=== PATIENT | male | born 1940 | race Caucasian/White ===

== ENCOUNTER 2017-08-25 07:01 | Inpatient (IN) ==
--- NOTE | 2017-08-24 22:06 | Discharge Summary ---
<Lia Maharaj E - Last Filed: 08/24/17 22:03> Date of Encounter: 08/24/17 - Discharge Diagnosis (1) Status post total hip replacement, right Priority: Primary Status: Acute (2) Osteoarthritis of right hip Priority: Primary Status: Chronic Qualifiers: Osteoarthritis type: unspecified Qualified Code(s): M16.11 - Unilateral primary osteoarthritis, right hip (3) HTN (hypertension) Priority: Secondary Status: Acute Qualifiers: Hypertension type: unspecified Qualified Code(s): I10 - Essential (primary ) hypertension (4) CAD (coronary artery disease) Priority: Secondary Status: Chronic Qualifiers: Coronary Disease-Associated Artery/Lesion type: unspecified vessel or lesion type [place] vs. 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 Wu is a 76 year old male - Time Spent with Patient Total time spent providing and/or coordinating discharge services: - Discharge Medications Home Medications: Oxycodone HCl 5 mg PO Q6H PRN 7 Days #28 tablet 08/24/17 [Rx] Acetaminophen [Tylenol Arthritis] 1,300 mg PO BID PRN 08/25/17 [History] Aspirin [Lo-Dose Aspirin EC] 81 mg PO DAILY 08/25/17 [History] Atorvastatin Calcium 80 mg PO HS 08/25/17 [History] Bisoprolol/HCTZ 2.5/6.25 [Ziac 2.5/6.25] 1 each PO DAILY 08/25/17 [History] Clopidogrel [Plavix] 75 mg PO DAILY 08/25/17 [History] Doxazosin [Cardura] 2 mg PO HS 08/25/17 [History] Allergies/Adverse Reactions: 3 Allergy/AdvReac Type Severity Reaction Status Date / Time No Known Allergies Allergy Verified 08/25/17 07:49 Primary care physician: Jean Paul Alfredo MD - Patient Status Disposition: Home Health Service Condition: Good - Discharge Instructions Follow Up With: Jean Paul Alfredo MD [Primary Care Provider] - <Damien Mendoza - Last Filed: 08/28/17 08:55> Date of Encounter: 08/28/17 Time of Encounter: 08:54 - Discharge Diagnosis (1) Obesity (BMI 35.0-39.9 without comorbidity) Priority: Secondary Status: Chronic (2) Status post total hip replacement, right Priority: Primary Status: Acute (3) Osteoarthritis of right hip Priority: Primary Status: Chronic Qualifiers: Osteoarthritis type: unspecified Qualified Code(s): M16.11 - Unilateral primary osteoarthritis, right hip (4) HTN (hypertension) Priority: Secondary Status: Acute Qualifiers: Hypertension type: unspecified Qualified Code(s): I10 - Essential (primary ) hypertension (5) CAD (coronary artery disease) Priority: Secondary Status: Chronic Qualifiers: Coronary Disease-Associated Artery/Lesion type: unspecified vessel or lesion type [place] vs. 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 Wu is a 76 year old male Status post right total hip replacement The patient had an uneventful postoperative course. They received antibiotics and physical therapy and were discharged in stable condition. There will follow -up in the office in 2 weeks. - Time Spent with Patient Total time spent providing and/or coordinating discharge services: Primary care physician: Jean Paul Alfredo MD - Patient Status Functional capacity at discharge: uses cane/walker Overall status at discharge: patient is progressing back to baseline
[2017-08-25] MEDS ORDERED: Famotidine 20 MG/2 ML VIAL IVP ONE (07:26)
[2017-08-25] MEDS ORDERED: Pregabalin 75 MG CAPSULE PO ONE (07:27)
[2017-08-25] MEDS ORDERED: Acetaminophen IV 1,000 MG/100 ML INFUS..BTL IVPB ONE (07:27)
[2017-08-25] MEDS ORDERED: Plasma-Lyte A (PH 7.4) 1,000 ML IVC SCH (07:30)
[2017-08-25] MEDS ORDERED: CeFAZolin Syr 2,000MG/20 ML 2,000 MG/20 ML SYRINGE IVPB ONE ×2 (07:34→12:26)
--- NOTE | 2017-08-25 07:43 | History & Physical Report ---
Date of Encounter: 08/25/17 Time of Encounter: 07:43 24 Hour HP Update - Instructions Instructions: If the History and Physical is less than 30 days old and was completed prior to A.M. admission and or procedure and has NOT been updated on calendar day of procedure please complete this update prior to performing procedure. - Update Patient reports changes in Medical Condition: No Changes in examination, assessment, or condition: No Changes in Medication: No Preop tests/diagnostics Reviewed: Yes Surgery Remains Indicated: Yes Consent for Planned Operative Procedure(s) Verified: Yes - Pre-Operative Checklist Preoperative Checklist Indicated: No Prophylactic Antibiotic Ordered: Yes Is VTE Prophylaxis Indicated?: Yes
[2017-08-25] MEDS ORDERED: Ringers Solution, Lactated 1,000 ML IVC SCH (07:45)
[2017-08-25] MEDS ORDERED: Ethanol\\Acetic Acid\\Na Ace\\Ben 1,000 ML IRRIG.SOLN IR ONE (08:17)
--- NOTE | 2017-08-25 08:24 | Anesthesia Evaluation PreOp ---
Date of Encounter: 08/25/17 Time of Encounter: 08:15 - Past History Planned Operation: Rt THR Cardiac History: HTN, Hyperlipidemia, Cardiac Stent (Stent X1 2003, off Plavix 3 days), Other (CAD) Pulmonary History: Denies Any Significant HX ENGRAVER MACHINE History: Denies Any Significant HX Other Medical History: Other (OA) Anesthesia History: No Prior Anesthetic Complications Alcohol Use: none Drug use: none Medications and Allergies Oxycodone HCl 5 mg PO Q6H PRN 7 Days #28 tablet 08/24/17 [Rx] Acetaminophen [Tylenol Arthritis] 1,300 mg PO BID PRN 08/25/17 [History] Aspirin [Lo-Dose Aspirin EC] 81 mg PO DAILY 08/25/17 [History] Atorvastatin Calcium 80 mg PO HS 08/25/17 [History] Bisoprolol/HCTZ 2.5/6.25 [Ziac 2.5/6.25] 1 each PO DAILY 08/25/17 [History] Clopidogrel [Plavix] 75 mg PO DAILY 08/25/17 [History] Doxazosin [Cardura] 2 mg PO HS 08/25/17 [History] 3 Allergy/AdvReac Type Severity Reaction Status Date / Time No Known Allergies Allergy Verified 08/25/17 07:49 - Meds/Allergy Pre-op Review Medications Reviewed: Yes Allergies Reviewed: Yes Beta Blockers on Current Med List: Yes (Bisoprolol today 0530) Anesthesia Results - Labs Laboratory Tests 08/19/17 08/19/17 08/19/17 16:16 16:16 16:16 Hgb 13.2 Hct 40.2 Plt Count 194 PT 11.4 INR 1.1 APTT 28.5 Sodium 141 Potassium 4.2 BUN 16 Creatinine 1.15 - Imaging EKG: report reviewed (SR) Anesthesia Exam O2 Sat Height 1.83 m Height 1.83 m Weight 119.748 kg Weight 119.748 kg O2 Sat by Pulse Oximetry 95 Vital Signs Temp Pulse Resp BP Pulse Ox 97.8 F 58 18 126/77 95 08/25/17 07:19 08/25/17 07:19 08/25/17 07:19 08/25/17 07:19 08/25/17 07:19 Height: 6'0 Weight: 264 lbs NPO (# of Hours): MN Pain Scale: 0 - HEENT Pupil (Motor): Pupils equal, EOMI Mallampati: II Denture Type: Upper: Complete Oral Opening: Greater than 3 - ENGRAVER MACHINE LOC: Oriented ENGRAVER MACHINE Motor: Normal RUE, Normal LUE, Normal RLE, Normal LLE, Normal Face ENGRAVER MACHINE Sensory: Normal: RUE, LUE, RLE, LLE, Face - Cardiac Rhythm: Regular Murmur: None JVD: No Carotid Bruit: No - Pulmonary Breath Sounds: bilateral Clear Respiratory Effort: Symmetrical Anesthesia Assess/Plan ASA Score: 3 (CAD HTN) Modified [place] Scale for Level of Consciousness: Cooperative, oriented, and tranquil Anesthetic Plan: General, Regional Monitoring Plan: Standard Monitors Recovery Plan: PACU (Discussed GA and Fascia Iliaca Block agrees to proceed)
[2017-08-25] MEDS ORDERED: Tetracaine/PF 20 MG/2 ML AMPUL ONE (08:26)
[2017-08-25] MEDS ORDERED: ROPIVACAINE HCL/PF 0.5% 30 ML VIAL ONE (08:26)
[2017-08-25] MEDS ORDERED: Lidocaine -MPF 2% 5 ML VIAL ONE (08:59)
[2017-08-25] MEDS ORDERED: *HR* OxyCODONE Immed Rel 5 MG TABLET PO PRN (09:05)
[2017-08-25] MEDS ORDERED: *HR* Labetalol 20 MG/4 ML SYRINGE IVP PRN (09:05)
[2017-08-25] MEDS ORDERED: *HR* FentaNYL (PF) 100 MCG/2 ML VIAL ONE ×2 (09:09→10:39)
[2017-08-25] MEDS ORDERED: *HR* Propofol 200 MG/20 ML VIAL IVP ONE (09:09)
[2017-08-25] MEDS ORDERED: Ondansetron 4 MG/2 ML VIAL ONE (09:09)
[2017-08-25] MEDS ORDERED: *HR* Succinylcholine 200 MG/10 ML VIAL IVP ONE (09:09)
[2017-08-25] MEDS ORDERED: Dexamethasone 4 MG/ML VIAL ONE (09:09)
[2017-08-25] MEDS ORDERED: Lidocaine -MPF 2% 2 ML VIAL ONE (09:11)
[2017-08-25] MEDS ORDERED: *HR* Midazolam HCl 2 MG/2 ML VIAL ONE (09:23)
[2017-08-25] MEDS ORDERED: Bupivacaine-MPF 0.25% 10 ML VIAL ONE (09:24)
[2017-08-25] MEDS ORDERED: EPHEDrine 50 MG/ML VIAL ONE (10:11)
--- NOTE | 2017-08-25 10:20 | Anesthesia Procedures ---
Date of Encounter: 08/25/17 Time of Encounter: 09:39 Procedures: Anesthesia - Nerve Block Procedure Date: 08/25/17 Time: 09:39 Surgical Procedure: right total hip replacment Checklist: Correct Patient Identifier, Correct procedure, History checked Correct side: Right Monitor Applied: BP, Pulse Oximetry Supplemental Oxygen via Nasal Cannula (L/min): 2 Sedation: Versed (mg): 1 Sedation: Fentanyl (mcg): 50 Indication: Post Op Analgesia Block Type: Other (fascia iliac ) Catheter placed: No Sterile Technique: Yes Ultrasound used: Yes Anatomy identified: Yes Visual spread of Local: Yes Neuro Stimulation: No Blood on Needle Aspiration: No Smooth Injection of Local: Yes Pain with Injection of Local: No Prep: Chlorhexadine Needle: 22 x 50 mm Stimuplex Local: 0.25% Bupivicaine w/Clonidine 20 mcg/cc (10ml of 0.125%), Ropivacaine ( 30ml 0.5% rop with 8mg decadron, 2ml tetracaine, with 26ml 0.9% NS dilute) Volume (cc): 70 Number of Attempts: 1 Complications: None/effective block Vitals: vss though out, block per request of surgeon
--- NOTE | 2017-08-25 10:54 | Orthopedic Operative Note ---
Date of procedure: 08/25/17 Pre-op diagnosis: Right hip arthritis Post-op diagnosis: same Procedure: Procedure: Right Total Hip Replacment robotic-assisted Estimated blood loss: 200 cc Hardware: Metal and polyethylene replacement. Conchis DM Cup: 60 cup Femoral size 10 stem Head: 0 head with Shanelle Procedural Notes: Grade 4 arthritic changes femoral head acetabular socket, procedure performed with robotic assistance. one millimeters short operative versus nonoperative side Operative procedure: The patient was brought to the operating room and placed on the operating room table. After general anesthesia was administered the patient was placed in the lateral decubitus position with the operative leg up. All pressure points were padded appropriately and the head was stabilized in the neutral position. The operative extremity was prepped and draped in the sterile surgical fashion patient received IV antibiotic prior to skin incision. 3 Steinmann pins were placed in the iliac crest 3 cm proximal to the anterior superior iliac spine this was for the robotic-assisted sensor. This was done through a small 2 cm incision. A standard posterior approach is made to the operative hip, the incision was made through the skin and subcutaneous tissue hemostasis was obtained with Bovie cautery. Using careful sharp dissection the fascia was identified and incised exposing the external rotators. The femoral checkpoint was placed leg length was measured at this time utilizing robotic assistance. The external rotators were released off the greater trochanter and tagged with # 2 FiberWire suture. The capsule was T'd open and the hip was brought into internal rotation. Patient noted to have grade 4 arthritic changes femoral head. The femoral neck cut was made at the appropriate level roughly 15 mm proximal to the lesser trochanter aced on preoperative templating. An anterior capsulotomy was performed for the anterior retractor. Soft tissues removed from the acetabulum. Patient noted to have grade 4 arthritic changes acetabulum. The acetabulum checkpoint was placed confirmed. The acetabulum was then mapped with robotic assistance. Based on the preoperative plan the acetabulum was reamed in one step with a 59 reamer. The 60 acetabulum was impacted with robotic assistance and 40 degrees of abduction and 20 degrees of anteversion. The hip was brought back in to internal rotation and prepared with the box finisher followed by the canal finder followed by the reaming process to a size 9/ 10 broaching process in 20 degrees anteversion. It was broached up to the appropriate size 10. Trial reduction revealed leg lengths close to normal. The femoral implant was impacted in place in 20 degrees of anteversion. Trial reduction found the hip to be stable with 0 head and Shanelle. The trials were removed and the real implants were impacted in place. The hip was reduced, patient had robotic confirmed leg length of 8 mm longer than the contralateral side. The hip had excellent stability with forward flexion to 90 degrees adduction of 30 degrees and internal rotation of 60 degrees. The hip had no shuck. The hips after 2 minutes with a antibacterial solution. It was irrigated out with 2 L of pulse irrigation. The checkpoints were removed, Steinmann pins were removed. The hip was closed by the PA. The deep tissue was irrigated and closed deep with #1 PDS suture superficially with 0 PDS suture and skin was closed with Dermabond and zip tie. The patient was placed in a sterile dressing and abduction pillow. The patient was extubated and transferred to the recovery room in stable condition. Anesthesia: GET[facility] Surgeon: Damien Mendoza Was there an certified medical technician assistant present: Yes Substation Operator Conversion: Opal Krishnan Estimated blood loss (cc): 200 Condition: stable Disposition: PACU
[2017-08-25] MEDS: MORPHINE SUL Oral CONC 10 MG/0.5 ML ORAL.SYG SL PRN ×2 (11:32→11:39)
[2017-08-25 12:12] LABS: Hematocrit 36.8 % (37.5-50.1); Hemoglobin 12.6 g/dL (12.9-16.9)
[2017-08-25] MEDS: Bisoprolol/HCTZ 2.5/6.25 TABLET PO SCH (14:53)
[2017-08-25] MEDS: Aspirin Enteric Coated 81 MG Tablet PO SCH (14:53)
[2017-08-25] MEDS ORDERED: traMADol 50 MG TABLET PO PRN (17:26)
[2017-08-25] MEDS ORDERED: Ondansetron 4 MG/2 ML VIAL IVP PRN (17:26)
[2017-08-25] MEDS ORDERED: MOM Conc 10 ML UD.LIQ PO PRN (17:26)
[2017-08-25] MEDS ORDERED: Temazepam 15 MG CAPSULE PO PRN (17:26)
[2017-08-25] MEDS ORDERED: Naloxone 0.4 MG/ML INJ IVP PRN (17:26)
[2017-08-25] MEDS ORDERED: Sennosides 8.6 MG TABLET PO PRN (17:26)
[2017-08-25] MEDS ORDERED: *HR* Enoxaparin 30 MG/0.3 ML SYRINGE SQ SCH (18:00)
[2017-08-25] MEDS: Ringers Solution, Lactated 1,000 ML IVC SCH (18:09)
[2017-08-26] MEDS: CeFAZolin Pre 2,000 MG/100 ML 2,000 MG/100 ML BAG IVPB SCH ×2 (00:08→08:44)
[2017-08-26 02:18] LABS: Hematocrit 33.9 % (37.5-50.1); Hemoglobin 11.8 g/dL (12.9-16.9)
[2017-08-26 02:42] LABS: BUN/Creatinine Ratio 21 (6-26); Blood Urea Nitrogen 20 mg/dL (8-23); Calcium 8.9 mg/dL (8.6-10.3); Carbon Dioxide 20 mEq/L (23-29); Chloride 107 mEq/L (98-107); Glucose 142 mg/dL (70-105); Osmolality,Calculated 289 (280-300); Potassium 3.9 mEq/L (3.5-5.1); Sodium 137 mEq/L (136-145); eGFR For African Americans > 60 (> 60); eGFR For Non-African Americans > 60 (> 60)
[2017-08-26] MEDS: *HR* OxyCODONE/APAP 5/325 TABLET PO PRN ×4 (05:10→19:43)
--- NOTE | 2017-08-26 06:53 | Orthopedics Progress Note ---
Date of Encounter: 08/26/17 Time of Encounter: 06:53 - Assessment and Plan (1) Obesity (BMI 35.0-39.9 without comorbidity) Current Visit: Yes Status: Chronic (2) Status post total hip replacement, right Current Visit: No Status: Acute (3) Osteoarthritis of right hip Current Visit: No Status: Chronic Qualifiers: Osteoarthritis type: unspecified Qualified Code(s): M16.11 - Unilateral primary osteoarthritis, right hip (4) HTN (hypertension) Current Visit: No Status: Acute Qualifiers: Hypertension type: unspecified Qualified Code(s): I10 - Essential (primary ) hypertension (5) CAD (coronary artery disease) Current Visit: No Status: Chronic Qualifiers: Coronary Disease-Associated Artery/Lesion type: unspecified vessel or lesion type [place] vs. 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 Afebrile vital signs stable. Operative extremity: Neurovascularly intact Dressing clean dry and intact Calves nontender Assessment and plan: Continue with postoperative care Hematocrit 33 Objective Vital signs: Vital Signs Temp Pulse Resp BP Pulse Ox 08/26/17 02:47 98.2 F 62 18 106/64 94 08/25/17 22:53 98.6 F 74 14 95/60 97 08/25/17 18:38 97.9 F 69 16 106/67 97 08/25/17 12:30 98.1 F 16 16 129/83 99 08/25/17 12:00 97.6 F 63 14 129/78 98 08/25/17 11:50 97.6 F 68 16 125/86 97 08/25/17 11:40 75 16 135/79 98 08/25/17 11:30 72 16 123/84 98 08/25/17 11:20 97.0 F L 72 16 138/95 100 08/25/17 09:40 52 16 118/75 98 08/25/17 09:30 58 16 129/90 96 08/25/17 07:19 97.8 F 58 18 126/77 95 Intake and Output 08/25/17 08/25/17 08/26/17 15:59 23:59 07:59 Intake Total 600 / 600 500 / 500 Output Total 200 / 200 700 / 700 0 / 0 Balance -200 / -200 -100 / -100 500 / 500 Intake: Oral 600 / 600 500 / 500 Output: Urine 700 / 700 0 / 0 Estimated Blood Loss 200 / 200 Other: Meal Dinner Percent of Meal Consumed 50% - Labs CBC & BMP: 08/26/17 01:52 08/26/17 01:52 Labs: Abnormal lab results Hgb 11.8 g/dL (12.9-16.9) L 08/26/17 01:52 Hct 33.9 % (37.5-50.1) L 08/26/17 01:52 Carbon Dioxide 20 mEq/L (23-29) L 08/26/17 01:52 Glucose 142 mg/dL (70-105) H 08/26/17 01:52 - VTE Documentation of Mechanical Device: Venous foot pump, device Consult Discharge Plan - Plan Referrals: Jean Paul Alfredo MD [Primary Care Provider] -
--- NOTE | 2017-08-26 08:39 | Event Note ---
Date of Encounter: 08/26/17 Time of Encounter: 09:00 PCR- POD#1 right total hip robotic 08/25/17 Dr. Mendoza PCR - Patient seen at bedside. Labwork and medications reviewed. Pain control: Adequate Participating in PT. All questions and concerns addressed. Educated on use of incentive spirometer, ambulation, and hydration. Patient educated on post-operative restrictions and care. Addressed: The patient complains of weakness of the right leg with ambulation. He states that he has not been able to participate much with therapy she states this is much more intense than he anticipated. D/C plan: Home with outpatient therapy pending therapy evaluation
[2017-08-26] MEDS: Ascorbic Acid 500 MG TABLET PO SCH ×2 (08:43→15:46)
[2017-08-26] MEDS: Multivit/Ca/Min/Fe/FA 1 TAB TABLET PO SCH (08:43)
[2017-08-26] MEDS: Bisoprolol/HCTZ 2.5/6.25 TABLET PO SCH (08:43)
[2017-08-26] MEDS: Aspirin Enteric Coated 81 MG Tablet PO SCH (08:43)
--- NOTE | 2017-08-26 17:20 | Physician Discharge Referral ---
ExtendedCare Referral Info Transfer To: [facility] Provider in Charge: Dr. 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 Priority: Secondary Status: Chronic (6) Obesity Priority: Secondary Status: Chronic Expected Duration of Placement: less than 30 days Prognosis: Good Aware of Diagnosis: Patient Aware of Prognosis: Patient - Transfer Medications Home Medications: Oxycodone HCl 5 mg PO Q6H PRN 7 Days #28 tablet 08/24/17 [Rx] Acetaminophen [Tylenol Arthritis] 1,300 mg PO BID PRN 08/25/17 [History] Aspirin [Lo-Dose Aspirin EC] 81 mg PO DAILY 08/25/17 [History] Atorvastatin Calcium 80 mg PO HS 08/25/17 [History] Bisoprolol/HCTZ 2.5/6.25 [Ziac 2.5/6.25] 1 each PO DAILY 08/25/17 [History] Clopidogrel [Plavix] 75 mg PO DAILY 08/25/17 [History] Doxazosin [Cardura] 2 mg PO HS 08/25/17 [History] Allergies/Adverse Reactions: 3 Allergy/AdvReac Type Severity Reaction Status Date / Time No Known Allergies Allergy Verified 08/25/17 07:49 - Respiratory Orders Smoking Cessation: Smoking cessation has been advised. For more information, call the [place] Tobacco Quit Line at 1-814-YOWC-NOW. - Ancillary Orders May use pressure relief devices daily prn, May go on PEPE w/family/respon alliance party w /meds at nurse discretion PRN, May consult with Dentist, Knit Tubing Dyer, Metal Products Viewer PRN - Mobility Orders Chair, Ambulate - Rehabiliation Orders Rehab Potential: Good Rehab Orders: Evaluation for Physical Therapy, Evaluation for Occupational Therapy Other: Total Hip replacement Precautions Apply cold therapy 3-6x/day for 20 minutes at a time. Encourage ambulation throughout the day and incentive spirometer 10x/hour. Elevate affected extremity as tolerated. Brace: Wear hip abduction pillow when laying/sleeping - Treatments Skin tear care topically daily PRN per policy List/Other: Opsite placed. Keep dressing intact until first follow up appointment. If greater than 50% saturated, notify office, remove dressing and place appropriate dressing back in place. Leave Zipline intact. Opsite dressing is water resistant, not water-proof. OK to shower, but do not get dressing wet. - Diet Orders Regular CERTIFICATION: I certify that the transfer of the above named patient to an Extended Care Facility is necessary for the continuing treatment of the diagnosis listed. The above information is true and accurate reflection of patient's current condition. Confidential - Redisclosure prohibited without a patient's written consent.
--- NOTE | 2017-08-26 17:22 | Physician Discharge Referral ---
Home Health/Hosp Referral Info Transfer to: Home Health Attending Provider: Dr. 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 For more information, call the [place] Tobacco Quit Line at 7-294-BDUM-NOW. - Dressing/Wound Care Site: Right hip Type of Dressing/Treatments w/Frequency: Opsite placed. Keep dressing intact until first follow up appointment. If greater than 50% saturated, notify office, remove dressing and place appropriate dressing back in place. Leave Zipline intact. Opsite dressing is water resistant, not water-proof. OK to shower, but do not get dressing wet. - Diet/Nutrition Diet/Nutrition Orders: Regular - Activity Activity Orders: Up ad aneta, Ambulate, Chair, Walker Activity: List: Total Hip replacement Precautions Apply cold therapy 3-6x/day for 20 minutes at a time. Encourage ambulation throughout the day and incentive spirometer 10x/hour. Elevate affected extremity as tolerated. Brace: Wear hip abduction pillow when laying/sleeping - Services Needed Following services are medically necessary services: Nursing, Home Health Aide, Physical Therapy, Occupational Therapy - Transfer Medications Home Medications: Oxycodone HCl 5 mg PO Q6H PRN 7 Days #28 tablet 08/24/17 [Rx] Acetaminophen [Tylenol Arthritis] 1,300 mg PO BID PRN 08/25/17 [History] Aspirin [Lo-Dose Aspirin EC] 81 mg PO DAILY 08/25/17 [History] Atorvastatin Calcium 80 mg PO HS 08/25/17 [History] Bisoprolol/HCTZ 2.5/6.25 [Ziac 2.5/6.25] 1 each PO DAILY 08/25/17 [History] Clopidogrel [Plavix] 75 mg PO DAILY 08/25/17 [History] Doxazosin [Cardura] 2 mg PO HS 08/25/17 [History] Allergies/Adverse Reactions: 3 Allergy/AdvReac Type Severity Reaction Status Date / Time No Known Allergies Allergy Verified 08/25/17 07:49 Certification: Further, I certify that my clinical findings support that this patient is homebound (i.e. absences from home require considerable and taxing effort and are for medical reasons or hindu services or infrequently or short duration when for other reasons) because: Homebound Reason: Post-surgery restriction and or conditions limit ability to leave home Attestation: My signature below is to certify that this patient is under my care and that I, or nurse practitioner, or a physician promotions assistant working with me, has a face-to- face encounter with this patient.
[2017-08-27 02:31] LABS: BUN/Creatinine Ratio 25 (6-26); Blood Urea Nitrogen 23 mg/dL (8-23); Calcium 8.4 mg/dL (8.6-10.3); Carbon Dioxide 26 mEq/L (23-29); Chloride 106 mEq/L (98-107); Glucose 139 mg/dL (70-105); Osmolality,Calculated 290 (280-300); Potassium 3.8 mEq/L (3.5-5.1); Sodium 137 mEq/L (136-145); eGFR For African Americans > 60 (> 60); eGFR For Non-African Americans > 60 (> 60)
--- NOTE | 2017-08-27 06:57 | Orthopedics Progress Note ---
Date of Encounter: 08/27/17 Time of Encounter: 06:57 - Assessment and Plan (1) Obesity (BMI 35.0-39.9 without comorbidity) Current Visit: Yes Status: Chronic (2) Status post total hip replacement, right Current Visit: No Status: Acute (3) Osteoarthritis of right hip Current Visit: No Status: Chronic Qualifiers: Osteoarthritis type: unspecified Qualified Code(s): M16.11 - Unilateral primary osteoarthritis, right hip (4) HTN (hypertension) Current Visit: No Status: Acute Qualifiers: Hypertension type: unspecified Qualified Code(s): I10 - Essential (primary ) hypertension (5) CAD (coronary artery disease) Current Visit: No Status: Chronic Qualifiers: Coronary Disease-Associated Artery/Lesion type: unspecified vessel or lesion type [place] vs. 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 Afebrile vital signs stable. Operative extremity: Neurovascularly intact Dressing clean dry and intact Calves nontender Assessment and plan: Continue with postoperative care Hematocrit 33 Objective Vital signs: Vital Signs Temp Pulse Resp BP Pulse Ox 08/27/17 03:42 98.1 F 68 14 118/75 94 08/26/17 22:29 98.3 F 73 16 106/70 93 08/26/17 18:52 98.6 F 75 16 114/67 93 08/26/17 15:43 97.9 F 70 16 115/71 95 08/26/17 11:17 97.8 F 63 16 121/74 95 08/26/17 08:00 96 08/26/17 07:19 98.7 F 71 16 103/66 96 Intake and Output 08/26/17 08/26/17 08/27/17 15:59 23:59 07:59 Intake Total 360 / 360 100 / 100 400 / 400 Output Total 1400 / 1400 350 / 350 650 / 650 Balance -1040 / -1040 -250 / -250 -250 / -250 Intake: Oral 360 / 360 100 / 100 400 / 400 Output: Urine 1400 / 1400 350 / 350 650 / 650 Other: Meal Lunch Percent of Meal Consumed 100% - Labs CBC & BMP: 08/27/17 01:35 08/27/17 01:35 Labs: Abnormal lab results Hgb 11.0 g/dL (12.9-16.9) L 08/27/17 01:35 Hct 33.0 % (37.5-50.1) L 08/27/17 01:35 Glucose 139 mg/dL (70-105) H 08/27/17 01:35 Calcium 8.4 mg/dL (8.6-10.3) L 08/27/17 01:35 - VTE Documentation of Mechanical Device: Venous foot pump, device Consult Discharge Plan - Plan Referrals: Jean Paul Alfredo MD [Primary Care Provider] -
[2017-08-27] MEDS: Ascorbic Acid 500 MG TABLET PO SCH ×2 (08:02→15:52)
[2017-08-27] MEDS: Aspirin Enteric Coated 81 MG Tablet PO SCH (08:02)
[2017-08-27] MEDS: *HR* OxyCODONE Immed Rel 5 MG TABLET PO PRN ×2 (08:02→22:41)
[2017-08-27] MEDS: Bisoprolol/HCTZ 2.5/6.25 TABLET PO SCH (08:02)
[2017-08-27] MEDS: Multivit/Ca/Min/Fe/FA 1 TAB TABLET PO SCH (08:02)
[2017-08-27] MEDS: *HR* OxyCODONE/APAP 5/325 TABLET PO PRN (11:47)
[2017-08-27] MEDS: Ringers Solution, Lactated 1,000 ML IVC SCH ×2 (11:48→11:49)
--- NOTE | 2017-08-27 18:58 | Event Note ---
Date of Encounter: 08/27/17 Time of Encounter: 09:15 PCR- POD#2 right total hip robotic 08/25/17 Dr. Mendoza PCR - Patient seen at bedside. Labwork and medications reviewed. Pain control: Adequate Participating in PT. All questions and concerns addressed. Educated on use of incentive spirometer, ambulation, and hydration. Patient educated on post-operative restrictions and care. Addressed: The patient complains of weakness of the right leg with ambulation. He states that he has not been able to participate much with therapy she states this is much more intense than he anticipated. Patient admits to dizziness with therapy this morning. Therapy in the room when this provider entered room. Discussed that this may be blood pressure, pain, and hydration related. Patient with continued mild internal rotation of the right leg. He does express some pain with passive external rotation of the leg. However he states this is in the area of the incision and not in the groin or the buttock. He remains neurovascularly intact. No calf tenderness noted. D/C plan: inpatient rehabilitation. Continuity placed.
--- NOTE | 2017-08-28 08:56 | Orthopedics Progress Note ---
Date of Encounter: 08/28/17 Time of Encounter: 08:55 - Assessment and Plan (1) Obesity (BMI 35.0-39.9 without comorbidity) Current Visit: Yes Status: Chronic (2) Status post total hip replacement, right Current Visit: No Status: Acute (3) Osteoarthritis of right hip Current Visit: No Status: Chronic Qualifiers: Osteoarthritis type: unspecified Qualified Code(s): M16.11 - Unilateral primary osteoarthritis, right hip (4) HTN (hypertension) Current Visit: No Status: Acute Qualifiers: Hypertension type: unspecified Qualified Code(s): I10 - Essential (primary ) hypertension (5) CAD (coronary artery disease) Current Visit: No Status: Chronic Qualifiers: Coronary Disease-Associated Artery/Lesion type: unspecified vessel or lesion type [place] vs. 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 Afebrile vital signs stable. Operative extremity: Neurovascularly intact Dressing clean dry and intact Calves nontender Assessment and plan: Continue with postoperative care Discharged today Objective Vital signs: Vital Signs Temp Pulse Resp BP Pulse Ox 08/28/17 06:42 98.8 F 91 16 128/68 96 08/28/17 04:03 99.3 F 80 14 120/72 96 08/27/17 23:21 99.6 F 83 14 120/66 94 08/27/17 19:19 99.8 F H 85 14 125/74 96 08/27/17 15:25 98.3 F 79 16 111/72 96 08/27/17 11:00 98.7 F 68 16 128/76 95 08/27/17 10:14 98.4 F 73 16 134/68 96 Intake and Output 08/27/17 08/28/17 08/28/17 23:59 07:59 15:59 Intake Total 680 / 680 0 / 0 Output Total 2250 / 2250 300 / 300 Balance -1570 / -1570 -300 / -300 Intake: Oral 680 / 680 0 / 0 Output: Urine 2250 / 2250 300 / 300 Other: Meal Dinner Percent of Meal Consumed 80% - Labs CBC & BMP: 08/27/17 01:35 08/27/17 01:35 Labs: Abnormal lab results Hgb 11.0 g/dL (12.9-16.9) L 08/27/17 01:35 Hct 33.0 % (37.5-50.1) L 08/27/17 01:35 Glucose 139 mg/dL (70-105) H 08/27/17 01:35 Calcium 8.4 mg/dL (8.6-10.3) L 08/27/17 01:35 - VTE Documentation of Mechanical Device: Venous foot pump, device Consult Discharge Plan - Plan Referrals: Jean Paul Alfredo MD [Primary Care Provider] -
--- NOTE | 2017-08-28 09:14 | Event Note ---
Date of Encounter: 08/28/17 Time of Encounter: 09:14 PCR- POD#3 right total hip robotic 08/25/17 Dr. Mendoza PCR - Patient seen at bedside. Labwork and medications reviewed. Pain control: Adequate Participating in PT. All questions and concerns addressed. Educated on use of incentive spirometer, ambulation, and hydration. Patient educated on post-operative restrictions and care. Addressed: The patient complains of weakness of the right leg with ambulation. He states that he has not been able to participate much with therapy she states this is much more intense than he anticipated. Patient admits to dizziness with therapy this morning. Therapy in the room when this provider entered room. Discussed that this may be blood pressure, pain, and hydration related. Patient with continued mild internal rotation of the right leg. He does express some pain with passive external rotation of the leg. However he states this is in the area of the incision and not in the groin or the buttock. He remains neurovascularly intact. No calf tenderness noted. He states this is improved today. D/C plan: inpatient rehabilitation today. Continuity placed.
[2017-08-28] MEDS: Aspirin Enteric Coated 81 MG Tablet PO SCH (09:57)
[2017-08-28] MEDS: Multivit/Ca/Min/Fe/FA 1 TAB TABLET PO SCH (09:57)
[2017-08-28] MEDS: Ascorbic Acid 500 MG TABLET PO SCH (09:57)
[2017-08-28] MEDS: Bisoprolol/HCTZ 2.5/6.25 TABLET PO SCH (09:57)
[2017-08-28 11:30] VITALS: BP 134/73
== END 2017-08-28 15:56 | disposition home health service (06) | DRG 470 ==
LOC: SAMDAY 07:01 → 3NENU 12:17
PROVIDERS: ADMIT Orthopaedic Surgery; ATTEND Orthopaedic Surgery